=== PATIENT | female | born 1990 | race Caucasian/White ===

== ENCOUNTER 2016-04-16 12:40 | Emergency (ER) | payer OTHER ==
[~2016-04-16] VITALS: Ht 165.1 cm; Wt 56.6 kg
[~2016-04-16 12:40] MED LIST: CYCL10TA6 PO; DLN100 PO; GABA-113 PO; LACT10SO17 PO; LAMICTAL 250 MG PO; LAMO100T PO; METO25TA56 PO; PARO1TAB27 PO; PRLSR20 PO
[2016-04-16 12:50] VITALS: Ht 165.1 cm; Wt 56.6 kg
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
[2016-04-16] MEDS ORDERED: SODIUM CHLORIDE 0.9% 1000ML 1,000 ML IV STA (12:53)
[2016-04-16] MEDS ORDERED: ONDANSETRON INJ 2 MG/ML 2 ML VIAL IV STA (12:53)
[2016-04-16 12:59] VITALS: TEMP 37.1; O2SAT 98
[2016-04-16] MEDS ORDERED: LEVETIRACETAM IV 1,000 MG in DEXTROSE 5% 100ML 100 ML IV ONE (13:00)
--- NOTE | 2016-04-16 13:20 | DIAGNOSTIC IMAGING REPORT ---
CHEST ONE VIEW PORTABLE CLINICAL HISTORY: SEIZURE mental status change. COMPARISON STUDY: 06/16/2013 FINDINGS: The bones soft tissues and hemidiaphragms are normal. The cardiomediastinal silhouette is normal. The lungs are clear. The pulmonary vasculature is normal. Postoperative changes of the low cervical region. IMPRESSION: No acute process. Electronically signed by: Demario Valdivia M.D. 04/16/2016 1:19 PM
[2016-04-16] MEDS ORDERED: CHLO25CA9 PO (13:42)
[2016-04-16] MEDS ORDERED: MAGN400T6 PO (13:42)
[2016-04-16] MEDS ORDERED: DICY20TA10 PO (13:42)
[2016-04-16] MEDS ORDERED: PPTBS PO (13:42)
[2016-04-16] MEDS ORDERED: HYDR50CA2 PO (13:42)
[2016-04-16] MEDS ORDERED: THM100 PO (13:42)
[2016-04-16] MEDS ORDERED: LAMO150T32 PO (13:42)
[2016-04-16] MEDS ORDERED: ONDA4TAB46 PO (13:42)
[2016-04-16] MEDS ORDERED: FOLI1TAB7 PO (13:42)
[2016-04-16] MEDS ORDERED: MULT-506 PO (13:42)
[2016-04-16] MEDS ORDERED: ONDA4TAB46 IM (13:42)
--- NOTE | 2016-04-16 14:08 | DIAGNOSTIC IMAGING REPORT ---
CT OF THE HEAD WITHOUT CONTRAST CLINICAL HISTORY: Seizure. COMPARISON STUDY: Head CT June 14, 2013 and MRI of the brain August 03, 2014. CT DOSE: 638.56 mGycm TECHNIQUE: Helical axial images of the head were obtained without IV contrast. Automated exposure control was utilized for the study. FINDINGS: No acute intracranial hemorrhage, midline shift or mass effect is present. Brain volume is normal. Ventricular system is normal. The basilar cisterns are patent. There are no extra-axial collections. Guillermo-white differentiation is maintained. There are no findings to suggest acute dural sinus thrombosis or acute territorial infarct. There is no calvarial fracture. IMPRESSION: No acute intracranial findings. Electronically signed by: Suhas Hall M.D. 04/16/2016 2:07 PM 04/16/2016 2:04 PM
--- NOTE | 2016-04-16 14:15 | DIAGNOSTIC IMAGING REPORT ---
CERVICAL SPINE CT CT DOSE: 481.45 mGycm HISTORY: Trauma seizure TECHNIQUE: Multiaxial CT images of the cervical spine were performed and reformatted in the sagittal and coronal plane without the use of contrast. COMPARISON: None. FINDINGS: No fractures. No subluxation. Prevertebral soft tissues and the C1-C2 interval are intact. No pneumothorax. Findings consistent with an anterior as well as posterior fusion-type change from C6 through T2. Fusion appears solid. Hardware is intact. IMPRESSION: No fractures within the cervical spine. Electronically signed by: Demario Valdivia M.D. 04/16/2016 2:13 PM Dictated Date/Time: 04/16/2016 2:07 PM
[2016-04-16 15:12] LABS: BASO % 0.3 %; BASO ABS # 0.02 K/uL (0-0.2); COMPLETE YES; EOS % 0.1 %; HEMATOCRIT 37.7 % (37-47); IG% 0.1 %; LYMPH % 22.3 %; LYMPH ABS # 1.64 K/uL (1.2-3.4); MEAN CELL VOLUME 85.1 fL (80-100); MEAN CORPUSCULAR HEMOGLOBIN 29.8 pg (25-34); MEAN PLATELET VOLUME 10.2 fL (7.4-10.4); MONO % 5.9 %; NEUT % 71.3 %; PLATELET COUNT 298 K/uL (130-400); RED BLOOD COUNT 4.43 M/uL (4.2-5.4); WHITE BLOOD COUNT 7.35 K/uL (4.8-10.8)
[2016-04-16 15:26] LABS: INR 1.1 (0.9-1.1); PARTIAL THROMBOPLASTIN RATIO 1.1; PROTHROMBIN TIME (PATIENT) 11.5 SECONDS (9.0-12.0)
[2016-04-16] MEDS ORDERED: LEVE500T13 PO (15:26)
[2016-04-16 15:31] LABS: BUN/CREATININE RATIO 15.2 (10-20); CALCIUM 8.7 mg/dl (8.5-10.1); CREATININE 0.64 mg/dl (0.60-1.20); MAGNESIUM 2.1 mg/dl (1.8-2.4); POTASSIUM 3.6 mmol/L (3.5-5.1)
[2016-04-16 15:41] LABS: PHOSPHORUS 2.8 mg/dl (2.5-4.9); THYROID STIMULATING HORMONE 0.151 uIu/ml (0.300-4.500)
[2016-04-16 15:42] LABS: ACETAMINOPHEN < 2 ug/ml (10-30)
[2016-04-16 15:47] LABS: URINE APPEARANCE CLEAR (CLEAR); URINE BILIRUBIN NEG (NEG); URINE COLOR YELLOW; URINE EPITHELIAL CELL AUTO >30 /lpf (0-5); URINE NITRITE NEG (NEG); URINE PH 6.5 (4.5-7.5); URINE SPECIFIC GRAVITY 1.003 (1.000-1.030); UROBILINOGEN NEG (NEG)
[2016-04-16 15:52] LABS: PREG INTERNAL NEGATIVE QC NEG CLEAR BACKGROUND; PREG INTERNAL POSITIVE QC POS CONTROL LINE
[2016-04-16 15:53] LABS: MANUAL MICROSCOPIC REQUIRED? NO; REVIEW REQ? NO
[2016-04-16 16:16] LABS: BENZODIAZEPINE, URINE POS (NEG); COCAINE,URINE NEG (NEG); PHENCYCLIDINE, URINE NEG (NEG)
[2016-04-16 16:34] VITALS: BP 119/64; PULSE 105; O2SAT 97
[2016-04-21 17:14] LABS: COD UR NEGATIVE NG/ML (CUTOFF=50); HYDROCOD UR NEGATIVE NG/ML (CUTOFF=50); HYDROMOR UR 482 NG/ML (CUTOFF=50); HYDROXYETHYLFLURAZEPAM CONF NEGATIVE NG/ML (CUTOFF=50); HYDROXYMIDAZOLAM NEGATIVE NG/ML (CUTOFF=50); HYDROXYTRIAZOLAM CONF NEGATIVE NG/ML (CUTOFF=50); MORPHINE UR >20000 NG/ML (CUTOFF=50); NORHYDROCODONE CONF UR NEGATIVE NG/ML (CUTOFF=50); OXYMORPH UR NEGATIVE NG/ML (CUTOFF=50); TEMAZEPAM CONF NEGATIVE NG/ML (CUTOFF=50)
== END 2016-04-16 16:37 ==
LOC: EDBD 12:40 → C.EDA 12:44
DX: G40.909 Epilepsy, unspecified, not intractable, without status epilepticus (principal); F11.10 Opioid abuse, uncomplicated; F14.10 Cocaine abuse, uncomplicated; F19.10 Other psychoactive substance abuse, uncomplicated; F10.10 Alcohol abuse, uncomplicated; F17.200 Nicotine dependence, unspecified, uncomplicated

== ENCOUNTER 2016-04-18 05:20 | Inpatient (IN) | payer OTHER ==
[~2016-04-18] VITALS: Ht 167.6 cm; Wt 63.1 kg
[~2016-04-18 05:20] MED LIST changes: +CHLO25CA9 PO; -CYCL10TA6 PO; +DICY20TA10 PO; -DLN100 PO; +FOLI1TAB7 PO; -GABA-113 PO; +HYDR50CA2 PO; -LACT10SO17 PO; -LAMICTAL 250 MG PO; -LAMO100T PO; +LAMO150T32 PO; +LEVE500T13 PO; +MAGN400T6 PO; -METO25TA56 PO; +MULT-506 PO; +ONDA4TAB46 IM; +ONDA4TAB46 PO; -PARO1TAB27 PO; +PPTBS PO; -PRLSR20 PO; +THM100 PO
[2016-04-18] MEDS ORDERED: SODIUM CHLORIDE 0.9% 1000ML 1,000 ML IV STA (05:36)
[2016-04-18] MEDS ORDERED: LEVETIRACETAM IV 1,000 MG in DEXTROSE 5% 100ML 100 ML IV ONE (05:45)
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
[2016-04-18 06:22] LABS: BASO % 0.4 %; BASO ABS # 0.03 K/uL (0-0.2); COMPLETE YES; EOS % 0.1 %; HEMATOCRIT 37.6 % (37-47); IG% 0.2 %; LYMPH % 20.1 %; LYMPH ABS # 1.62 K/uL (1.2-3.4); MEAN CELL VOLUME 84.5 fL (80-100); MEAN CORPUSCULAR HEMOGLOBIN 29.7 pg (25-34); MEAN CORPUSCULAR HGB CONC 35.1 g/dl (32-36); MEAN PLATELET VOLUME 9.9 fL (7.4-10.4); MONO % 8.4 %; NEUT % 70.8 %; PLATELET COUNT 274 K/uL (130-400); RED BLOOD COUNT 4.45 M/uL (4.2-5.4); WHITE BLOOD COUNT 8.06 K/uL (4.8-10.8)
[2016-04-18] MEDS ORDERED: CHLO25CA10 PO ×2 (06:23→06:30)
[2016-04-18] MEDS ORDERED: HYDR50CA2 PO (06:32)
[2016-04-18 06:36] LABS: INR 1.1 (0.9-1.1); PARTIAL THROMBOPLASTIN RATIO 1.1; PROTHROMBIN TIME (PATIENT) 11.6 SECONDS (9.0-12.0)
[2016-04-18] MEDS ORDERED: LEVE500T13 PO (06:40)
[2016-04-18 06:44] LABS: BUN/CREATININE RATIO 11.2 (10-20); CALCIUM 9.1 mg/dl (8.5-10.1); CREATININE 0.75 mg/dl (0.60-1.20); POTASSIUM 3.5 mmol/L (3.5-5.1)
[2016-04-18 06:54] LABS: ALB/GLOB RATIO 1.1 (0.9-2); CKMB/CK RATIO 1.1 (0-3.0); THYROID STIMULATING HORMONE 0.379 uIu/ml (0.300-4.500)
[2016-04-18] MEDS ORDERED: MULTI-VITAMIN INFUSION INJ 10 ML, THIAMINE HCL INJ 100 MG, FoLIC ACID INJ 1 MG in SODIU... IV ONE (07:00)
--- NOTE | 2016-04-18 07:36 | DIAGNOSTIC IMAGING REPORT ---
CHEST ONE VIEW PORTABLE CLINICAL HISTORY: Seizure. COMPARISON STUDY: Chest radiograph April 16, 2016. FINDINGS: Postsurgical findings within the spine are noted. There is no pneumothorax or pleural effusion. No pneumothorax or pleural effusions present. Cardiac size is normal. No consolidation is identified. IMPRESSION: No acute cardiopulmonary findings. Electronically signed by: Suhas Hall M.D. 04/18/2016 7:35 AM Dictated Date/Time: 04/18/2016 7:28 AM
[2016-04-18 07:48] LABS: URINE APPEARANCE TURBID (CLEAR); URINE BILIRUBIN NEG (NEG); URINE COLOR YELLOW; URINE NITRITE NEG (NEG); URINE PH 7.5 (4.5-7.5); URINE SPECIFIC GRAVITY 1.016 (1.000-1.030); UROBILINOGEN NEG (NEG)
[2016-04-18 07:49] LABS: MANUAL MICROSCOPIC REQUIRED? NO
[2016-04-18 07:58] LABS: URINE EPITHELIAL CELL AUTO >30 /lpf (0-5)
[2016-04-18 08:00] LABS: REVIEW REQ? NO; ZZUR CULT IF INDIC CLEAN CATCH YES
[2016-04-18] MEDS ORDERED: MAGNESIUM HYDROXIDE SUSP 30 ML UDC PO PRN (08:15)
[2016-04-18] MEDS ORDERED: ALUMINUM/MAGNESIUM/SIMETH (MAALOX MAX) 30 ML UDC PO PRN (08:15)
[2016-04-18] MEDS ORDERED: POLYETHYLENE (MIRALAX) 17 GM PACK PO PRN (08:15)
[2016-04-18] MEDS ORDERED: ONDANSETRON INJ 2 MG/ML 2 ML VIAL IV PRN (08:15)
[2016-04-18 08:17] LABS: BENZODIAZEPINE, URINE POS (NEG); COCAINE,URINE NEG (NEG); PHENCYCLIDINE, URINE NEG (NEG)
[2016-04-18] MEDS ORDERED: BISMUTH SUBSALICYLATE LIQUID 236 ML PO PRN (08:30)
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
[2016-04-18] MEDS: MAGNESIUM OXIDE 400 MG TAB PO SCH (09:00)
[2016-04-18] MEDS ORDERED: LORAZEPAM 2 MG/ML 1 ML VIAL ONE ×2 (10:49→11:01)
[2016-04-18 12:41] VITALS: BP 103/54; PULSE 119; TEMP 36.6; O2SAT 99; Ht 167.6 cm; Wt 63.1 kg
[2016-04-18] MEDS: SODIUM CHLORIDE 0.9% 1000ML 1,000 ML IV SCH ×2 (13:00→23:06)
[2016-04-18] MEDS: DICYCLOMINE HCL 20 MG TAB PO SCH ×2 (13:50→20:49)
[2016-04-18] MEDS: hydrOXYzine HCL 25 MG TAB PO SCH ×2 (13:50→20:49)
[2016-04-18] MEDS: NICOTINE 14 MG/24 HR TDSY TD SCH (13:50)
[2016-04-18] MEDS: CHLORDIAZEPOXIDE 25 MG CAP PO SCH ×2 (13:50→20:48)
[2016-04-18 15:25] VITALS: BP 119/72; PULSE 98; TEMP 37; O2SAT 99
[2016-04-18] MEDS: LORAZEPAM 2 MG/ML 1 ML VIAL IV PRN (18:45)
[2016-04-18 18:50] VITALS: BP 150/70; PULSE 131; O2SAT 100
[2016-04-18] MEDS ORDERED: NURSING VERBAL MED ORDER ONE (19:00)
[2016-04-18] MEDS: LEVETIRACTAM 500 MG in DEXTROSE 5% 100ML IV SCH (19:32)
[2016-04-18 20:20] VITALS: O2SAT 100
[2016-04-18] MEDS ORDERED: LEVETIRACETAM 500 MG TAB PO SCH (21:00)
[2016-04-19] MEDS: LORAZEPAM 2 MG/ML 1 ML VIAL IV PRN ×2 (00:53→04:18)
[2016-04-19 01:42] VITALS: BP 112/69; PULSE 89; TEMP 36.7; O2SAT 97
[2016-04-19 04:00] VITALS: BP 118/72; PULSE 92; TEMP 36.6; O2SAT 97
[2016-04-19 07:06] LABS: BUN/CREATININE RATIO 9.2 (10-20); CALCIUM 8.8 mg/dl (8.5-10.1); CREATININE 0.66 mg/dl (0.60-1.20); POTASSIUM 3.4 mmol/L (3.5-5.1)
[2016-04-19] MEDS ORDERED: POTASSIUM CHLORIDE 10 MEQ TABCR PO STA (07:51)
[2016-04-19] MEDS: CHLORDIAZEPOXIDE 25 MG CAP PO SCH (07:53)
[2016-04-19] MEDS: LEVETIRACTAM 500 MG in DEXTROSE 5% 100ML IV SCH (07:53)
[2016-04-19] MEDS: DICYCLOMINE HCL 20 MG TAB PO SCH ×2 (07:54→13:50)
[2016-04-19] MEDS: hydrOXYzine HCL 25 MG TAB PO SCH (07:54)
[2016-04-19] MEDS: NICOTINE 14 MG/24 HR TDSY TD SCH (07:56)
[2016-04-19] MEDS: MAGNESIUM OXIDE 400 MG TAB PO SCH (07:56)
[2016-04-19] MEDS: SODIUM CHLORIDE 0.9% 1000ML 1,000 ML IV SCH (08:04)
[2016-04-19 08:18] VITALS: BP 117/76; PULSE 101; TEMP 36.6; O2SAT 98
[2016-04-19] MEDS ORDERED: THIAMINE HCL 100 MG TAB PO SCH (09:00)
[2016-04-19] MEDS ORDERED: MULTIVITAMIN TAB PO SCH (09:00)
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
[2016-04-19] MEDS ORDERED: VALPROATE SOD IV 1,000 MG in DEXTROSE 5% 50ML 50 ML IV ONE (11:15)
[2016-04-19 12:01] VITALS: BP 114/77; PULSE 85; TEMP 36.9; O2SAT 98
--- NOTE | 2016-04-19 12:45 | Discharge Instructions ---
Discharge Instructions Admission Reason for Admission: Seizure,Alcohol Withdrawal Discharge Discharge Diagnosis / Problem: Seizure disorder Discharge Goals Goal(s): Decrease discomfort, Improve function, Increase independence, Improve disease control, Learn about illness, Diagnostic testing Activity Recommendations Activity Limitations: resume your previous activity Shower/Bathe: no limitations . Instructions / Follow-Up Instructions / Follow-Up Patient to be discharged back to correctional facility No changes in medications made If worsening seizure activity, recommend [facility] for 24 hr EEG monitoring Recommend weaning of librium Please follow up with medical provider in correctional facility in 1 week Current Hospital Diet Patient's current hospital diet: Regular Diet Discharge Diet Recommended Diet: Regular Diet Pending Studies Studies pending at discharge: no Medical Emergencies . Who to Call and When: Medical Emergencies: If at any time you feel your situation is an emergency, please call 911 immediately. . Non-Emergent Contact Non-Emergency issues call your: Primary Care Provider Call Non-Emergent contact if: you have any medication questions (seizure activity) . . "Provider Documentation" section prepared by Fortino Riggs. VTE Core Measure Inpt VTE Proph given/why not?: Jasper Espinoza, SCD's
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
[2016-04-19 13:02] VITALS: BP 114/77; PULSE 85; TEMP 36.9; O2SAT 98
[2016-04-19] MEDS ORDERED: DIVALPROEX 500 MG EXTENDED RELEASE TAB PO SCH (21:00)
[2016-04-20] MEDS ORDERED: CHLO25CA10 PO (01:24)
[2016-04-21 17:20] LABS: COD UR NEGATIVE NG/ML (CUTOFF=50); HYDROCOD UR NEGATIVE NG/ML (CUTOFF=50); HYDROMOR UR 382 NG/ML (CUTOFF=50); HYDROXYETHYLFLURAZEPAM CONF NEGATIVE NG/ML (CUTOFF=50); HYDROXYMIDAZOLAM NEGATIVE NG/ML (CUTOFF=50); HYDROXYTRIAZOLAM CONF NEGATIVE NG/ML (CUTOFF=50); MORPHINE UR 9840 NG/ML (CUTOFF=50); NORHYDROCODONE CONF UR NEGATIVE NG/ML (CUTOFF=50); OXYMORPH UR NEGATIVE NG/ML (CUTOFF=50); TEMAZEPAM CONF NEGATIVE NG/ML (CUTOFF=50)
== END 2016-04-19 13:51 | disposition home or self-care (01) | DRG 101 ==
LOC: ENRESERVDT → ENRESERVTM → EDBD 05:20 → C.EDA 05:21 → C.2T 08:24
PROVIDERS: ADMIT Hospitalist; ATTEND Hospitalist
DX: G40.509 Epileptic seizures related to external causes, not intractable, without status epilepticus (principal); E72.20 Disorder of urea cycle metabolism, unspecified; F10.239 Alcohol dependence with withdrawal, unspecified; Z87.820 Personal history of traumatic brain injury; B19.20 Unspecified viral hepatitis C without hepatic coma; F11.10 Opioid abuse, uncomplicated; F17.210 Nicotine dependence, cigarettes, uncomplicated; F10.10 Alcohol abuse, uncomplicated; M54.2 Cervicalgia; F31.9 Bipolar disorder, unspecified

== ENCOUNTER 2016-04-20 00:53 | Emergency (ER) | payer OTHER ==
[~2016-04-20] VITALS: Ht 162.6 cm; Wt 65.8 kg
[~2016-04-20 00:53] MED LIST changes: +CHLO25CA10 PO; +CYCL10TA6 PO; +DLN100 PO; +GABA-113 PO; +LACT10SO17 PO; +LAMICTAL 250 MG PO; +LAMO100T PO; +METO25TA56 PO; +PARO1TAB27 PO; +PRLSR20 PO
[2016-04-20 00:56] VITALS: TEMP 36.5; Ht 162.6 cm; Wt 65.8 kg
[2016-04-20 01:02] VITALS: O2SAT 96
[2016-04-20] MEDS ORDERED: SODIUM CHLORIDE 0.9% 1000ML 1,000 ML IV STA (01:02)
[2016-04-20] MEDS ORDERED: CHLO25CA10 PO (01:24)
[2016-04-20] MEDS ORDERED: NICOTINE 14 MG/24 HR TDSY TD ONE (01:30)
[2016-04-20 01:33] LABS: BASO % 0.3 %; BASO ABS # 0.02 K/uL (0-0.2); COMPLETE YES; EOS % 0.8 %; HEMATOCRIT 37.4 % (37-47); IG% 0.1 %; LYMPH % 31.1 %; LYMPH ABS # 2.41 K/uL (1.2-3.4); MEAN CELL VOLUME 84.8 fL (80-100); MEAN CORPUSCULAR HEMOGLOBIN 29.3 pg (25-34); MEAN CORPUSCULAR HGB CONC 34.5 g/dl (32-36); MEAN PLATELET VOLUME 9.9 fL (7.4-10.4); MONO % 5.7 %; PLATELET COUNT 298 K/uL (130-400); RED BLOOD COUNT 4.41 M/uL (4.2-5.4); WHITE BLOOD COUNT 7.74 K/uL (4.8-10.8)
[2016-04-20 01:47] LABS: INR 1.1 (0.9-1.1); PARTIAL THROMBOPLASTIN RATIO 1.1; PROTHROMBIN TIME (PATIENT) 11.5 SECONDS (9.0-12.0)
[2016-04-20 01:51] LABS: ALT/SGPT 78 U/L (12-78); AST/SGOT 25 U/L (15-37); BLOOD UREA NITROGEN 6 mg/dl (7-18); BUN/CREATININE RATIO 8.2 (10-20); CALCIUM 9.1 mg/dl (8.5-10.1); CARBON DIOXIDE 25 mmol/L (21-32); CHLORIDE 108 mmol/L (98-107); CREATININE 0.72 mg/dl (0.60-1.20); GLUCOSE 87 mg/dl (70-99); MAGNESIUM 2.3 mg/dl (1.8-2.4); POTASSIUM 3.5 mmol/L (3.5-5.1); SODIUM 144 mmol/L (136-145)
[2016-04-20 01:54] LABS: ALB/GLOB RATIO 1.2 (0.9-2)
[2016-04-20 02:04] LABS: ALKALINE PHOSPHATASE 53 U/L (45-117); CKMB/CK RATIO 0.8 (0-3.0); THYROID STIMULATING HORMONE 0.972 uIu/ml (0.300-4.500)
--- NOTE | 2016-04-20 02:35 | EMERGENCY ROOM VISIT NOTE ---
History First contact with patient: 00:55 Chief Complaint: SEIZURE Stated Complaint: SEIZURES Nursing Triage Summary: Patient arrived to ED via ALS from [facility] for seizures. Report that patient had 1 seizure at 2100, another seizure at 2300, and then has had consecutive seizures since then. Patient reports that she was incontinent of urine since then. Patient is slow to respond at present time, but is alert and oriented x 4. Reports hx of seizures. 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 She reports that she last used heroin on 04/14. Track martinez noted on bilateral arms. History of Present Illness The patient is a 25 year old female who presents to the Emergency Department via EMS for evaluation of ongoing seizures. The patient has a history of seizure disorder. She is currently in the [facility] [place]. She was discharged from this facility yesterday after admission for breakthrough seizures and alcohol withdrawal. Patient has had occasional seizures throughout the day. This morning she developed consecutive seizures for approximately one hour. She had no seizures in route per EMS. There is been no postictal state upon arrival. She complains of a mild headache as well as neck pain. She rates her current discomfort as a 10/10. Patient denies any blurry vision, double vision, chest pain, abdominal pain. She did not bite her tongue. She does report urinating herself, however. She has been taking Keppra alone for her symptoms. Review of Systems A complete 10-point Review of Systems was discussed with the patient, with pertinent positives and negatives listed in the History of Present Illness. All remaining Review of Systems questions can be considered negative unless otherwise specified. Past Medical/Surgical History Medical Problems: (1) Herpes Simplex Nos (2) Strep Sore Throat (3) Tobacco Use Disorder (4) Tonsillectomy Family History COPD MOTHER, Cancer Kidney stones Sarcoidosis MOTHER, Social History Smoking Status: Current Every Day Smoker Alcohol Use: none Drug Use: cocaine, heroin, other Marital Status: single Housing Status: lives with family Occupation Status: unemployed Current/Historical Medications Scheduled Chlordiazepoxide (Librium), 25 MG PO DAILY Dicyclomine Hcl (Dicyclomine Hcl), 20 MG PO TID Folic Acid (Folvite), 1 MG PO DAILY Hydroxyzine Pamoate (Vistaril), 25 MG PO TID Lamotrigine (Lamictal), 250 MG PO BID Levetiracetam (Keppra), 500 MG PO BID Magnesium Oxide (Mag-Ox), 400 MG PO DAILY Multivitamin (Multivitamin), 1 TAB PO DAILY Thiamine HCl (Vitamin B-1), 100 MG PO DAILY Scheduled PRN Bismuth Subsalicylate (Pepto-Bismol Susp), 30 ML PO BID PRN for PRN Ondansetron Hcl (Zofran), 4 MG PO TID PRN for Nausea Ondansetron Hcl (Zofran), 4 MG IM TID PRN for PRN Allergies Coded Allergies: No Known Allergies (Unverified , 04/20/16) Physical Exam Vital Signs Date Time Temp Pulse Resp B/P Pulse Ox O2 Delivery O2 Flow Rate FiO2 04/20/16 02:45 87 18 105/69 95 04/20/16 01:02 101 04/20/16 01:02 96 Room Air 04/20/16 00:56 36.5 87 20 100/73 97 Room Air Pain Rating (0-10): 10 Physical Exam VITAL SIGNS - Vital signs and nursing notes were reviewed. GENERAL - 25-year-old female appearing her stated age who is in no acute distress. Communicates well with provider and answers questions appropriately. HEAD - Normocephalic, Atraumatic. No Sierra's Sign or Raccoon's Eyes. No depressed skull fractures palpable. EYES - PERRL with EOMI bilaterally. Sclera anicteric. Palpebral conjunctiva pink and moist with no injection noted. EARS - No deformities of external structures noted on gross examination bilaterally. No pain elicited with palpation of the tragus bilaterally. External auditory canals without discharge or otorrhea. Tympanic membranes pearly bright without retraction or bulging. NOSE - Midline and without cyanosis. No epistaxis or purulent drainage noted. Septum midline without deviation or septal hematoma noted. MOUTH/OROPHARYNX - Without perioral cyanosis. Buccal mucosa pink and moist and without leukoplakia. Tongue midline with equal elevation of palate bilaterally. No tonsillar hypertrophy, erythema, or exudates noted. NECK - Neck with FROM. Supple to palpation. Well-healed surgical incision site appreciated in the posterior portion of the neck. LUNGS - Chest wall symmetric without accessory muscle use, intercostals retractions, or central cyanosis. Normal vesicular breath sounds CTA B/L. No wheezes, rales, or rhonchi appreciated. CARDIAC - RRR with S1/S2. No murmur, rubs, or gallops appreciated. ABDOMEN - Abdominal contour flat and without pulsations or visible masses. BS normoactive all four quadrants. No tenderness, palpable masses, hepatosplenomegaly, or ascites noted. EXTREMITIES - No pretibial edema present. +3/5 radial and dorsalis pedis pulses palpated throughout. FROM with no tremors, fasciculations, or clonus noted on PROM throughout. +5/5 strength noted in UE/LE bilaterally. NEUROLOGIC - Cranial nerves II through XII grossly intact. Sensory intact to light touch throughout. Patellar reflexes +2/4. Patient able to perform rapid alternating movements appropriately. PSYCH - A&Ox3 and cooperates fully with examiner. Pt is very pleasant and interacts well with examiner. Medical Decision & Procedures ER Provider Diagnostic Interpretation: X-ray the chest was obtained and reviewed by myself. No acute cardiopulmonary processes appreciated per my interpretation. Unchanged from prior. Cervical hardware remains intact. Radiologist's impression unavailable at the time of dictation. Laboratory Results 04/20/16 01:22 Red Blood Count 4.41, Mean Corpuscular Volume 84.8, Mean Corpuscular Hemoglobin 29.3, Mean Corpuscular Hemoglobin Concent 34.5, Mean Platelet Volume 9.9, Neutrophils (%) (Auto) 62.0, Lymphocytes (%) (Auto) 31.1, Monocytes (%) (Auto) 5.7, Eosinophils (%) (Auto) 0.8, Basophils (%) (Auto) 0.3, Neutrophils # (Auto) 4.80, Lymphocytes # (Auto) 2.41, Monocytes # (Auto) 0.44, Eosinophils # (Auto) 0.06, Basophils # (Auto) 0.02 04/20/16 01:22 Test 04/20/16 01:22 White Blood Count 7.74 K/uL (4.8-10.8) Red Blood Count 4.41 M/uL (4.2-5.4) Hemoglobin 12.9 g/dL (12.0-16.0) Hematocrit 37.4 % (37-47) Mean Corpuscular Volume 84.8 fL (80-100) Mean Corpuscular Hemoglobin 29.3 pg (25-34) Mean Corpuscular Hemoglobin Concent 34.5 g/dl (32-36) Platelet Count 298 K/uL (130-400) Mean Platelet Volume 9.9 fL (7.4-10.4) Neutrophils (%) (Auto) 62.0 % Lymphocytes (%) (Auto) 31.1 % Monocytes (%) (Auto) 5.7 % Eosinophils (%) (Auto) 0.8 % Basophils (%) (Auto) 0.3 % Neutrophils # (Auto) 4.80 K/uL (1.4-6.5) Lymphocytes # (Auto) 2.41 K/uL (1.2-3.4) Monocytes # (Auto) 0.44 K/uL (0.11-0.59) Eosinophils # (Auto) 0.06 K/uL (0-0.5) Basophils # (Auto) 0.02 K/uL (0-0.2) RDW Standard Deviation 44.0 fL (36.4-46.3) RDW Coefficient of Variation 14.2 % (11.5-14.5) Immature Granulocyte % (Auto) 0.1 % Immature Granulocyte # (Auto) 0.01 K/uL (0.00-0.02) Prothrombin Time 11.5 SECONDS (9.0-12.0) Prothromb Time International Ratio 1.1 (0.9-1.1) Activated Partial Thromboplast Time 28.2 SECONDS (21.0-31.0) Partial Thromboplastin Ratio 1.1 Anion Gap 11.0 mmol/L (3-11) Est Creatinine Clear Calc Drug Dose 111.6 ml/min Estimated GFR () 134.9 Estimated GFR (Non- 116.4 BUN/Creatinine Ratio 8.2 (10-20) Calcium Level 9.1 mg/dl (8.5-10.1) Magnesium Level 2.3 mg/dl (1.8-2.4) Total Bilirubin 0.5 mg/dl (0.2-1) Aspartate Amino Transf (AST/SGOT) 25 U/L (15-37) Alanine Aminotransferase (ALT/SGPT) 78 U/L (12-78) Alkaline Phosphatase 53 U/L (45-117) Total Creatine Kinase 139 U/L (26-192) Creatine Kinase MB 1.1 ng/ml (0.5-3.6) Creatine Kinase MB Ratio 0.8 (0-3.0) Troponin I < 0.015 ng/ml (0-0.045) Total Protein 7.1 gm/dl (6.4-8.2) Albumin 3.9 gm/dl (3.4-5.0) Globulin 3.2 gm/dl (2.5-4.0) Albumin/Globulin Ratio 1.2 (0.9-2) Lipase 72 U/L (73-393) Thyroid Stimulating Hormone (TSH) 0.972 uIu/ml (0.300-4.500) Medications Administered Medications (Trade) Dose Ordered Sig/Alla Route Start Time Stop Time Status Last Admin Dose Admin Sodium Chloride (Nss 1000ml) 1,000 ml @ 999 mls/hr Q1H1M STAT IV 04/20/16 01:02 04/20/16 02:02 DC 04/20/16 01:25 999 MLS/HR Nicotine (Nicoderm Cq 14MG Patch) 1 patch NOW ONCE TD 04/20/16 01:30 04/20/16 01:31 DC 04/20/16 01:39 1 PATCH Procedure Patient was placed on the cardiac specialist and monitored throughout the entire extent of their stay. In addition, the patient's pulse oximetry was monitored throughout the entire stay. Any abnormalities or aberrancies were addressed appropriately. ECG Indication: other (seizure) Rate (beats per minute): 82 Rhythm: normal sinus Findings: no acute ischemic change, no ectopy Change: no significant change ED Course Patient was seen and evaluated by myself. Previous emergency department visit notes and hospitalizations were reviewed. Labs were drawn, saline lock in place. EKG and chest x-rays were obtained. Patient was hydrated with a 1000 mL normal saline bolus. She was provided a NicoDerm patch for comfort at her request. Chest x-ray and EKGs are unremarkable. Laboratory results demonstrate no acute leukocytosis, worrisome anemia, or bandemia. The patient has no significant electrolyte abnormalities. Cardiac enzymes are negative. Troponin is negative. Patient had no breakthrough seizures while in the emergency department. [facility] was [facility] in [facility] condition. Medical Decision Given the patient's presentation and stated complaints, I did elect to perform the above-mentioned workup. The patient presents today after having multiple seizures this morning. She presents alert and oriented. There is been no postictal state upon arrival. I am familiar with this patient from her previous visit approximately 3 days ago. Her exam is otherwise unremarkable. She has no focal neurological deficits. Despite having the amount of seizures that was reported, the patient has actually no postictal state at all which is somewhat surprising. I questioned the patient may be experiencing pseudoseizure like activity or attention seeking like activity as well. Upon arrival she did request a NicoDerm patch for comfort. I did provide this to her. Her evaluation is unremarkable today. I do not feel the patient needs any further medications at this point. She will continue her Keppra. She is on Librium for her withdrawal symptoms. She will continue his medication. She will [facility] to the [facility] where she can continue to be monitored closely. Patient discharged home in good condition. In the evaluation and treatment of this patient, the following differential diagnoses were considered: Pseudoseizures, attention seeking behavior, somatization, PE, tachyarrhythmia, Migraine Headache, Intracranial Hemorrhage, Subdural Hematoma, Subarachnoid Hemorrhage, Cerebral Aneurysm, Temporal/Giant Cell Arteritis, Tension Headache, Meningitis, Encephalitis, or Hydrocephalus. Impression Primary Impression: Seizure-like activity Departure Information Dispostion Home / Self-Care Condition GOOD Referrals [place] [facility] (PCP) Patient Instructions A Signature Page, My [facility] Additional Instructions Continue Keppra. Return for any changing or worsening symptoms.
[2016-04-20 02:45] VITALS: BP 105/69; PULSE 87; O2SAT 95
--- NOTE | 2016-04-20 06:50 | DIAGNOSTIC IMAGING REPORT ---
CHEST ONE VIEW PORTABLE CLINICAL HISTORY: seizure COMPARISON STUDY: 04/18/2016 FINDINGS: The cardiac and mediastinal contours are normal. There is no evidence of focal pulmonary consolidation. There is no evidence of failure. No pleural effusions are visualized.[ Postsurgical changes are present within the cervical spine IMPRESSION: No active disease in the chest. Electronically signed by: Zane Araujo M.D. 04/20/2016 6:48 AM Dictated Date/Time: 04/20/2016 6:48 AM
== END 2016-04-20 02:45 | disposition home or self-care (01) ==
LOC: EDBD 00:53 → C.EDB 00:54
DX: G40.909 Epilepsy, unspecified, not intractable, without status epilepticus (principal); F11.23 Opioid dependence with withdrawal; R51 Headache; M54.2 Cervicalgia; Z79.899 Other long term (current) drug therapy; F17.200 Nicotine dependence, unspecified, uncomplicated

== ENCOUNTER 2016-04-22 10:06 | Emergency (ER) | payer OTHER ==
[~2016-04-22 10:06] MED LIST changes: -CHLO25CA9 PO; -CYCL10TA6 PO; -DLN100 PO; -GABA-113 PO; -LACT10SO17 PO; -LAMICTAL 250 MG PO; -LAMO100T PO; -METO25TA56 PO; -PARO1TAB27 PO; -PRLSR20 PO
[2016-04-22 10:09] VITALS: TEMP 36.7; Ht 162.6 cm
[2016-04-22] MEDS ORDERED: LAMO25TA PO (10:34)
[2016-04-22] MEDS ORDERED: LAMO200T38 PO (10:34)
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
[2016-04-22 12:22] LABS: BASO % 0.3 %; BASO ABS # 0.02 K/uL (0-0.2); COMPLETE YES; EOS % 0.4 %; HEMATOCRIT 40.4 % (37-47); IG% 0.1 %; LYMPH % 25.8 %; LYMPH ABS # 1.91 K/uL (1.2-3.4); MEAN CORPUSCULAR HEMOGLOBIN 29.6 pg (25-34); MEAN CORPUSCULAR HGB CONC 34.4 g/dl (32-36); MEAN PLATELET VOLUME 10.1 fL (7.4-10.4); MONO % 6.3 %; NEUT % 67.1 %; PLATELET COUNT 377 K/uL (130-400); WHITE BLOOD COUNT 7.41 K/uL (4.8-10.8)
[2016-04-22 12:40] LABS: ALT/SGPT 67 U/L (12-78); BLOOD UREA NITROGEN 8 mg/dl (7-18); BUN/CREATININE RATIO 11.1 (10-20); CALCIUM 9.8 mg/dl (8.5-10.1); CARBON DIOXIDE 23 mmol/L (21-32); CHLORIDE 111 mmol/L (98-107); GLUCOSE 96 mg/dl (70-99); POTASSIUM 3.9 mmol/L (3.5-5.1); SODIUM 145 mmol/L (136-145)
[2016-04-22 12:43] LABS: ALB/GLOB RATIO 1.2 (0.9-2); ALKALINE PHOSPHATASE 55 U/L (45-117); AST/SGOT 28 U/L (15-37)
--- NOTE | 2016-04-22 14:50 | EEG Procedure Note ---
EEG Procedure Note Date of Service Apr 22, 2016. Start / End Times Start Time: 1:39 PM End Time: 2:00 PM Referring Physician Kin Bobo History This is a 25-year-old female who presents with recurrent seizure-like activity. EEG for further evaluation of possible seizure etiology. Home Medication List Scheduled Dicyclomine Hcl (Dicyclomine Hcl), 20 MG PO TID Folic Acid (Folvite), 1 MG PO DAILY Hydroxyzine Pamoate (Vistaril), 25 MG PO TID Lamotrigine (Lamictal), 200 MG PO BID Lamotrigine (Lamictal), 50 MG PO BID Levetiracetam (Keppra), 500 MG PO BID Magnesium Oxide (Mag-Ox), 400 MG PO DAILY Multivitamin (Multivitamin), 1 TAB PO DAILY Thiamine HCl (Vitamin B-1), 100 MG PO DAILY Scheduled PRN Bismuth Subsalicylate (Pepto-Bismol Susp), 30 ML PO BID PRN for PRN Description This is a 21 electrode EEG with a single channel dedicated to limited EKG. The electrodes were placed in accordance with the International 10-20 system. At the start of the recording the patient was in an awake state. Background was well organized and composed of symmetric mixed alpha and beta frequencies. There was a symmetric well-formed moderate amplitude 8-9 Hz posterior dominant rhythm that was reactive to eye opening and closure. Hyperventilation was not done. Intermittent photic stimulation at various frequencies produced no abnormalities. Drowsiness was indicated by loss of muscle artifact and slowing of the background rhythm. There was no sleep transients. Interpretation This is a normal awake and drowsy routine EEG. There was no electrographic seizures or epileptiform discharges. Clinical Correlation A normal EEG does not rule out epilepsy if there is a strong clinical suspicion.
[2016-04-22 15:06] VITALS: BP 109/65; PULSE 101; O2SAT 99
== END 2016-04-22 15:12 | disposition home or self-care (01) ==
LOC: EDBD 10:06 → C.EDC 10:07
DX: R20.0 Anesthesia of skin (principal); M62.81 Muscle weakness (generalized); Z87.820 Personal history of traumatic brain injury; Z79.899 Other long term (current) drug therapy; F17.210 Nicotine dependence, cigarettes, uncomplicated

== ENCOUNTER 2016-10-05 11:30 | Emergency (ER) | payer OTHER ==
[~2016-10-05] VITALS: Ht 152.4 cm; Wt 55.1 kg
[~2016-10-05 11:30] MED LIST changes: -CHLO25CA10 PO; -LAMO150T32 PO; +LAMO200T38 PO; +LAMO25TA PO; -ONDA4TAB46 IM; -ONDA4TAB46 PO
[2016-10-05 11:40] VITALS: TEMP 37.1; O2SAT 96; Ht 152.4 cm; Wt 55.1 kg
[2016-10-05] MEDS ORDERED: SERT50TA PO (13:19)
[2016-10-05 13:21] LABS: BASO % 0.2 %; BASO ABS # 0.02 K/uL (0-0.2); COMPLETE YES; EOS % 0.6 %; HEMATOCRIT 41.4 % (37-47); IG% 0.2 %; LYMPH ABS # 1.82 K/uL (1.2-3.4); MEAN CELL VOLUME 89.8 fL (80-100); MEAN CORPUSCULAR HEMOGLOBIN 31.7 pg (25-34); MEAN CORPUSCULAR HGB CONC 35.3 g/dl (32-36); MEAN PLATELET VOLUME 9.9 fL (7.4-10.4); MONO % 5.3 %; NEUT % 76.7 %; PLATELET COUNT 257 K/uL (130-400); RED BLOOD COUNT 4.61 M/uL (4.2-5.4); WHITE BLOOD COUNT 10.72 K/uL (4.8-10.8)
[2016-10-05 13:39] LABS: BUN/CREATININE RATIO 15.1 (10-20); CREATININE 0.63 mg/dl (0.60-1.20); POTASSIUM 4.1 mmol/L (3.5-5.1)
[2016-10-05 13:44] LABS: CALCIUM 9.4 mg/dl (8.5-10.1)
--- NOTE | 2016-10-05 14:21 | DIAGNOSTIC IMAGING REPORT ---
CT OF THE HEAD WITHOUT CONTRAST CLINICAL HISTORY: Head injury. Seizure. COMPARISON STUDY: Head CT April 16, 2016. CT DOSE: 537.48 mGy.cm TECHNIQUE: Helical axial images of the head were obtained without IV contrast. Automated exposure control was utilized for the study. FINDINGS: No acute intracranial hemorrhage, midline shift or mass effect is present. Ventricular system is normal. Basilar cisterns are patent. There are no extra-axial collections. Guillermo-white differentiation is maintained and there are no findings to suggest acute dural sinus thrombosis or acute territorial infarct. There is no calvarial fracture. IMPRESSION: No acute intracranial findings. Electronically signed by: Suhas Hall M.D. 10/05/2016 2:20 PM Dictated Date/Time: 10/05/2016 1:58 PM
[2016-10-05 14:54] VITALS: BP 124/66; PULSE 91; O2SAT 96
--- NOTE | 2016-10-05 18:21 | EMERGENCY ROOM VISIT NOTE ---
History Report prepared by Debbie: Abbie Acosta Under the Supervision of: Dr. Jimy Starr M.D. First contact with patient: 12:06 Chief Complaint: SEIZURE Stated Complaint: SEIZURE Nursing Triage Summary: Pt arrives to ER via ALS s/p seizure. Pt was at [facility] this AM and following hearing fell, hit head, and had an approx 10 sec period of "tensing up." Pt has hx of seizures, on Keppra. Pt was recently admitted at [facility] for similar problem. BS ASSISTANT MERCHANDISE MANAGER was 77. Upon arrival to ER pt is awake and oriented. History of Present Illness The patient is a 26 year old female who presents to the Emergency Room with complaints of an episode of seizure-like activity occurring ASSISTANT MERCHANDISE MANAGER. The patient is an inmate and had a hearing this morning. As she was leaving court with her probation officers she fell. There was a large wooden bench next to her and they think that she may have hit her head on the bench. They are unsure if the patient lost consciousness or not. They state that after she fell, she became very tense and diaphoretic for about 10 seconds. She was grunting and swearing. She was not shaking. The patient was able to answer questions immediately afterwards. The patient is currently complaining of a headache that is exacerbated by bright lights. She denies neck pain, chest pain, shortness of breath, melena, hematochezia, and urinary symptoms. She has normal menstrual periods and her LNMP was about 1 month ago. She denies chance of . The patient has a history of seizures. She has a neurologist in [place]. She saw her neurologist in August after a seizure and her medications were adjusted. She was taken off of her Lamictal. The patient is still taking Keppra. One of the probation officers at bedside is familiar with the patient and has witnessed her seizures in the past. She states that the episode today appeared to be like her previous seizures. Source of History: patient Onset: ASSISTANT MERCHANDISE MANAGER Position: other (global) Quality: other (seizure-like) Timing: other (episode) Modifying Factors (Relieving): other (time) Associated Symptoms: + LOC (possible), + headache, No chest pain, No SOB, No melena, No hematochezia, No urinary symptoms Review of Systems See HPI for pertinent positives & negatives. A total of 10 systems reviewed and were otherwise negative. Past Medical & Surgical Medical Problems: (1) Herpes Simplex Nos (2) Strep Sore Throat (3) Tobacco Use Disorder (4) Tonsillectomy Family History COPD MOTHER, Cancer Kidney stones Sarcoidosis MOTHER, Social History Smoking Status: Current Every Day Smoker Alcohol Use: none Drug Use: cocaine, heroin, other Marital Status: single Housing Status: lives with family Occupation Status: unemployed Current/Historical Medications Scheduled Levetiracetam (Keppra), 500 MG PO BID Magnesium Oxide (Mag-Ox), 400 MG PO DAILY Multivitamin (Multivitamin), 1 TAB PO DAILY Sertraline (Zoloft), 50 MG PO DAILY Thiamine HCl (Vitamin B-1), 100 MG PO DAILY Allergies Coded Allergies: No Known Allergies (Unverified , 10/05/16) Physical Exam Vital Signs Date Time Temp Pulse Resp B/P (MAP) Pulse Ox O2 Delivery O2 Flow Rate FiO2 10/05/16 14:54 91 18 124/66 96 10/05/16 13:56 85 16 114/68 97 Room Air 10/05/16 12:13 92 10/05/16 12:06 99 16 113/67 98 Room Air 10/05/16 11:40 37.1 98 14 111/97 96 Room Air 10/05/16 11:40 96 Room Air Physical Exam Constitutional: Vital signs reviewed. Head: No laceration or soft tissue swelling to the skull. Eyes: Pupils are equal round reactive to light. Conjunctiva are noninjected. ENT: Pharynx is clear without erythema or exudate. Mucous membranes are moist. Neck supple without meningeal signs. No midline tenderness to the cervical spine. Respiratory: Clear to auscultation bilaterally. Breath sounds are equal bilaterally. Cardiovascular: Regular rate and rhythm. No rubs or gallops. GI: Soft, nondistended and nontender. Bowel sounds are present. Musculoskeletal: No peripheral edema. No lower extremity tenderness. Integumentary: No cyanosis. Neurological: The patient is awake and alert. Cranial nerves II-XII are intact. Motor is 5 out of 5 all extremities. Sensation is intact to light touch all extremities. Normal speech. No pronator drift. Psychiatric: Normal affect. Medical Decision & Procedures ER Provider Diagnostic Interpretation: Radiology results as stated below per my review and the radiologist's interpretation: CT OF THE HEAD WITHOUT CONTRAST CLINICAL HISTORY: Head injury. Seizure. COMPARISON STUDY: Head CT April 16, 2016. CT DOSE: 537.48 mGy.cm TECHNIQUE: Helical axial images of the head were obtained without IV contrast. Automated exposure control was utilized for the study. FINDINGS: No acute intracranial hemorrhage, midline shift or mass effect is present. Ventricular system is normal. Basilar cisterns are patent. There are no extra-axial collections. Guillremo-white differentiation is maintained and there are no findings to suggest acute dural sinus thrombosis or acute territorial infarct. There is no calvarial fracture. IMPRESSION: No acute intracranial findings. Electronically signed by: Suhas Hall M.D. 10/05/2016 2:20 PM Dictated Date/Time: 10/05/2016 1:58 PM Laboratory Results 10/05/16 13:05 Red Blood Count 4.61, Mean Corpuscular Volume 89.8, Mean Corpuscular Hemoglobin 31.7, Mean Corpuscular Hemoglobin Concent 35.3, Mean Platelet Volume 9.9, Neutrophils (%) (Auto) 76.7, Lymphocytes (%) (Auto) 17.0, Monocytes (%) (Auto) 5.3, Eosinophils (%) (Auto) 0.6, Basophils (%) (Auto) 0.2, Neutrophils # (Auto) 8.23, Lymphocytes # (Auto) 1.82, Monocytes # (Auto) 0.57, Eosinophils # (Auto) 0.06, Basophils # (Auto) 0.02 10/05/16 13:05 Test 10/05/16 13:05 White Blood Count 10.72 K/uL (4.8-10.8) Red Blood Count 4.61 M/uL (4.2-5.4) Hemoglobin 14.6 g/dL (12.0-16.0) Hematocrit 41.4 % (37-47) Mean Corpuscular Volume 89.8 fL (80-100) Mean Corpuscular Hemoglobin 31.7 pg (25-34) Mean Corpuscular Hemoglobin Concent 35.3 g/dl (32-36) Platelet Count 257 K/uL (130-400) Mean Platelet Volume 9.9 fL (7.4-10.4) Neutrophils (%) (Auto) 76.7 % Lymphocytes (%) (Auto) 17.0 % Monocytes (%) (Auto) 5.3 % Eosinophils (%) (Auto) 0.6 % Basophils (%) (Auto) 0.2 % Neutrophils # (Auto) 8.23 K/uL (1.4-6.5) Lymphocytes # (Auto) 1.82 K/uL (1.2-3.4) Monocytes # (Auto) 0.57 K/uL (0.11-0.59) Eosinophils # (Auto) 0.06 K/uL (0-0.5) Basophils # (Auto) 0.02 K/uL (0-0.2) RDW Standard Deviation 50.7 fL (36.4-46.3) RDW Coefficient of Variation 15.2 % (11.5-14.5) Immature Granulocyte % (Auto) 0.2 % Immature Granulocyte # (Auto) 0.02 K/uL (0.00-0.02) Anion Gap 5.0 mmol/L (3-11) Est Creatinine Clear Calc Drug Dose 105.4 ml/min Estimated GFR () 143.5 Estimated GFR (Non- 123.8 BUN/Creatinine Ratio 15.1 (10-20) Calcium Level 9.4 mg/dl (8.5-10.1) Laboratory results as reviewed by me. ECG Indication: other Rate (beats per minute): 83 Rhythm: normal sinus Findings: no acute ischemic change, no ectopy ED Course 1206: The patient was evaluated in room C10. A complete history and physical exam was performed. 1432: I updated the patient on her results. 1438: I spoke with Dr. Obrien of neurology. We discussed the patient's results and treatment plan. He recommended keeping the patient on Keppra and having her follow-up with neurology. He did not think there was a need to add any other anti-seizure medications at this time. 1441: I reassessed the patient at this time. She is feeling better and resting comfortably. I discussed the results and treatment plan with the patient and her parole officers at the bedside. She has an MRI scheduled and the [facility] will arrange a follow-up appointment with neurology. I answered all pertaining questions that she had. She expressed understanding and verbalized agreement. The patient will be discharged back to [facility]. Medical Decision This is a 26-year-old female who presents with a head injury and fall. Differential diagnosis includes seizure, pseudoseizure, intracranial hemorrhage , skull fracture, metabolic derangement, syncope. I did perform a limited focused review of portions of the patient's old chart on the electronic medical record. The patient had an EEG in April which was normal. She was seen in April and evaluated by neuro, they felt that she may have pseudo seizures. The patient was admitted September 06 to [place]. She had an EEG which was negative on the . Neurology thought that she was "having convulsions rather than seizures" and she was placed on a benzo drip. They were unsure if she had seizure disorder vs alcohol withdrawal. She was discharged back to [facility] on the on Keppra. Medication Reconciliation: I attest that I have personally reviewed the patient' s current medication list. Blood Pressure Screening: Patient was found to have an elevated blood pressure and was referred to their primary doctor for recheck and further treatment. I did evaluate the patient as noted above. The patient is presenting today after falling at Court. Witnesses state that she fell and hit her head on a bench. She seemed to have lost consciousness for about 10 seconds but then was swearing and answering questions. Her body was tense but she was not shaky. She does have a history of seizure disorder and takes Keppra. She does complain of a headache. She is neurologically intact. IV access was established. The patient was placed on a continuous clinical research monitor. I did order and personally review the patient's 12-lead EKG as described above. I did order and review the patient's blood work as noted in the electronic medical record. I did order a CT of the head. I did review the images myself as well as the radiology report as described above. There is no evidence of vitreal hemorrhage. I did discuss the case with Dr. Ruiz of neurology. She recommended keeping the patient on Keppra and not adding any other antiepileptics. She will be discharged back to [facility] and follow up with neurology. She does have an appointment for an MRI of her brain. She was discharged back to [facility] and will follow up with the [facility] doctor. Consults Time Called: [phone] Consulting Physician: Dr. Obrien Returned Call: [phone] Obrien of neurology. We discussed the patient's results and treatment plan. He recommended keeping the patient on Keppra and having her follow-up with neurology. He did not think there was a need to add any other anti-seizure medications at this time. Impression Primary Impression: Breakthrough seizure Additional Impression: Head injury Scribe Attestation The scribe's documentation has been prepared under my direct and personally reviewed by me in its entirety. I confirm that the note above accurately reflects all work, treatment, procedures, and medical decision making performed by me. Departure Information Dispostion Home / Self-Care Referrals Josh Nogueira M.D. (PCP) Forms HOME CARE DOCUMENTATION FORM, IMPORTANT VISIT INFORMATION Patient Instructions ED Head Injury Closed, ED Seizure Recurrent, My [facility] Additional Instructions You have been examined and treated today on an emergency basis only. This is not a substitute for, or an effort to provide, complete comprehensive medical care. It is impossible to recognize and treat all injuries or illnesses in a single emergency department visit. It is therefore important that you follow up closely with the [facility] physician and neurology. Return for worsening symptoms or if you develop fever, vomiting, numbness or weakness on one side of your body , difficulties with your speech or walking, or any other concerning symptoms. Continue Keppra as prescribed. Problem Qualifiers Additional Impression: Head injury Encounter type: initial encounter Qualified Codes: S09.90XA - Unspecified injury of head, initial encounter
== END 2016-10-05 14:55 | disposition home or self-care (01) ==
LOC: EDBD 11:30 → C.EDC 11:32
DX: S09.90XA Unspecified injury of head, initial encounter (principal); R56.9 Unspecified convulsions; W19.XXXA Unspecified fall, initial encounter; W22.8XXA Striking against or struck by other objects, initial encounter; F17.200 Nicotine dependence, unspecified, uncomplicated; Z90.89 Acquired absence of other organs; Z82.5 Family history of asthma and other chronic lower respiratory diseases; Z84.1 Family history of disorders of kidney and ureter; Z83.2 Family history of diseases of the blood and blood-forming organs and certain disorders involving the immune mechanism; Z79.899 Other long term (current) drug therapy

== ENCOUNTER → 2016-10-14 | Outpatient (CLI) | payer OTHER ==
[~2016-10-14] MED LIST changes: -DICY20TA10 PO; -FOLI1TAB7 PO; +GADAVIST IV PRN; -HYDR50CA2 PO; -LAMO200T38 PO; -LAMO25TA PO; -PPTBS PO; +SERT50TA PO
--- NOTE | 2016-10-14 20:36 | DIAGNOSTIC IMAGING REPORT ---
MRI OF THE BRAIN WITHOUT AND WITH IV CONTRAST SEIZURE PROTOCOL CLINICAL HISTORY: Seizure disorder. COMPARISON STUDY: MRI of the brain August 03, [address] October 05, 2016. TECHNIQUE: Utilizing a 1.5 Jannet magnet and dedicated coil, multiplanar, multiecho imaging of the brain was performed pre and postcontrast administration. IV administration of 6 mL of Gadavist contrast was uneventful. Thin cut coronal T2 imaging was performed according to seizure protocol. FINDINGS: There are no areas of restricted diffusion. No acute intracranial hemorrhage, midline shift or mass effect is present. Brain volume is normal. Ventricular system is normal. Basilar cisterns are patent. There are no extra-axial collections. Flow-voids for the major intracranial vessels are present. A 1.4 cm T2 hyperintense nonenhancing abnormality within the right aspect of the nasopharynx may reflect a mucous retention cyst. This was present on prior exams. No new areas of signal abnormality are present. A 7 mm T2 hyperintense periventricular focus within the right parietal lobe is unchanged since prior exam of August 03, 2014. The appearance of the brain is unchanged since prior exam. There is no intracranial mass or pathologic enhancement. IMPRESSION: 1. No acute intracranial findings. 2. No change since MRI of August 03, 2014, as described above. 3. No intracranial masses or pathologic enhancement. Electronically signed by: Suhas Hall M.D. 10/14/2016 8:35 PM Dictated Date/Time: 10/14/2016 8:30 PM
== END | disposition home or self-care (01) ==
LOC: C.MRI 15:47
PROVIDERS: ATTEND Family Medicine
DX: G40.909 Epilepsy, unspecified, not intractable, without status epilepticus (principal)

== ENCOUNTER 2022-10-14 07:47 | Inpatient (IN) ==
[2022-10-14] MEDS ORDERED: LIDOCAINE 1% LOCAL 20 ML VIAL INFIL PRN (09:13)
[2022-10-14] MEDS ORDERED: OXYTOCIN 30 UNITS/500 ML BAG IV PRN ×3 (09:13→22:39)
[2022-10-14 10:14] LABS: Hematocrit (blood only) 38.2 % (37.0-47.0); Hemoglobin 13.8 g/dl (12.0-16.0); Mean Corpuscular Hemoglobin 31.9 pg (25.0-34.0); Mean Corpuscular Hgb Conc 36.1 g/dL (32.0-36.0); Mean Corpuscular Volume 88.4 fL (80.0-100.0); Mean Platelet Volume 12.5 fL (9.4-12.4); Platelet Count 193 K/uL (130-400); RDW Coefficient of Variation 13.3 % (11.5-14.5); RDW Standard Deviation 42.7 fL (36.4-46.3); Red Blood Count 4.32 M/uL (4.20-5.40); White Blood Count 10.98 K/ul (4.8-10.8)
[2022-10-14 10:27] LABS: Amphetamines+Metham, Urine Neg (Neg); Barbiturates, Urine Neg (Neg); Benzodiazepine, Urine Neg (Neg); Cocaine, Urine Neg (Neg); MDMA (Ecstacy), Urine Neg (Neg); Methadone, Urine Neg (Neg); Opiate, Urine Neg (Neg); Phencyclidine, Urine Neg (Neg)
[2022-10-14] MEDS ORDERED: miSOPROStoL 50 MCG TAB PO STA (11:06)
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
[2022-10-14] MEDS: buprenorphine HCL 8 MG SUBL SL SCH ×2 (13:43→20:53)
--- NOTE | 2022-10-14 17:01 | Labor Progress Brief Note ---
Date of Service October 14, 2022 Assessment & Plan Admission and Anticipated Discharge Date Admission Date: October 14, 2022 Physical Exam Genitourinary: OB Exam Abdomen: + estimated weight (7 lbs.) Manual OB Exam: + cervical dilation 3 cm, + cervical effacement 60%, + station -2 and + amniotic fluid clear OB Exam Monitor Tracing: + external FHT monitor used, + external uterine monitor used, + category I and + normal FHT variability AROM with Amni-hook clear fluid will start Oxytocin to augment ctx Results & Data Vital Signs (Past 12 Hours) Vital Signs Temp Pulse Resp BP 10/14/22 15:08 37.1 C 18 10/14/22 11:34 36.4 C L 20 10/14/22 15:08 75 114/65 10/14/22 11:34 73 120/64 10/14/22 08:02 36.6 C 79 18 116/76
[2022-10-14] MEDS: LACTATED RINGER'S 1,000 ML IV PRN ×2 (17:52→21:24)
[2022-10-14] MEDS ORDERED: BUPIVACAINE 0.25% PF 30 ML VIAL ONE (17:54)
[2022-10-14] MEDS ORDERED: SODIUM CHLORIDE 0.9% PF INJ 10 ML VIAL ONE (17:54)
[2022-10-14] MEDS ORDERED: LIDOCAINE 2%/EPINEPHRINE 1:200,000 20 ML PF ONE (17:54)
[2022-10-14] MEDS ORDERED: ePHEDrine sulfate 50 MG/ML AMP ONE (17:54)
[2022-10-14] MEDS ORDERED: fentaNYL citrate PF 100 MCG/2 ML VIAL ONE (17:54)
[2022-10-14] MEDS ORDERED: fentaNYL 2MCG/ML ROPIVACAINE 1.25MG/ML 100 ML BAG EPI ONE (17:55)
[2022-10-14] MEDS ORDERED: fentaNYL citrate PF 100 MCG/2 ML VIAL EPI STA (18:09)
[2022-10-14] MEDS ORDERED: ROPIVACAINE 0.5% PF 5 MG/ML 20 ML VIAL EPI PRN (18:09)
[2022-10-14] MEDS ORDERED: NALOXONE HCL 1 MG in SODIUM CHLORIDE 0.9% 1000ML 1,000 ML IV PRN (18:09)
[2022-10-14] MEDS ORDERED: NALOXONE HCL 0.4 MG/1 ML VIAL/CARP IV PRN (18:09)
[2022-10-14] MEDS ORDERED: NALBUPHINE HCL INJ 10 MG/ML AMP IV PRN (18:09)
[2022-10-14] MEDS ORDERED: SODIUM CHLORIDE 0.9% PF INJ 10 ML VIAL EPI PRN (18:09)
[2022-10-14] MEDS ORDERED: ePHEDrine sulfate 50 MG/ML AMP IV PRN (18:09)
[2022-10-14] MEDS ORDERED: fentaNYL 2MCG/ML ROPIVACAINE 1.25MG/ML 100 ML BAG EPI PRN (18:09)
[2022-10-14] MEDS ORDERED: LIDOCAINE 2% MPF LOCAL 5 ML VIAL EPI PRN (18:09)
[2022-10-14] MEDS ORDERED: diphenhydrAMINE 50 MG/ML VIAL IV PRN (18:09)
[2022-10-14] MEDS ORDERED: fentaNYL citrate PF 100 MCG/2 ML VIAL EPI PRN (18:09)
[2022-10-14] MEDS ORDERED: SODIUM CHLORIDE 0.9% PF INJ 10 ML VIAL EPI STA (18:09)
[2022-10-14] MEDS ORDERED: LIDOCAINE 2%/EPINEPHRINE 1:200,000 20 ML PF EPI STA (18:09)
[2022-10-14] MEDS ORDERED: BUPIVACAINE 0.25% PF 30 ML VIAL EPI STA (18:09)
[2022-10-14] MEDS ORDERED: BUPIVACAINE 0.25% PF 30 ML VIAL EPI PRN (18:09)
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
[2022-10-14] MEDS ORDERED: OXYTOCIN 10 UNITS/ML 10ML VIAL IM ONE (22:03)
--- NOTE | 2022-10-14 22:06 | Delivery Summary ---
Vaginal Delivery Summary Date of Service October 14, 2022 Vaginal Delivery Summary Delivery Note live female BRENT over intact perineum with delayed cord clamping and Apgars 8/9 weight pending. Cord blood obtained followed by spontaneous delivery of intact placenta. No tears. EBL 100 ml. Final sponge and instrument count are correct. Mom and baby stable.
--- NOTE | 2022-10-14 22:19 | Anesthesia Procedure Note ---
Date of Service October 14, 2022 Anesthesia Post Epidural Note Vital Signs Vital Signs: Temp Pulse Resp BP Pulse Ox 98.2 F 92 H 18 104/54 L 98 10/14/22 20:58 10/14/22 22:15 10/14/22 21:27 10/14/22 22:15 10/14/22 21:54 Notes Mental Status: alert / awake / arousable and participated in evaluation Nausea / Vomiting: adequately controlled Pain: adequately controlled Airway Patency, RR, SpO2: stable & adequate BP & HR: stable & adequate Hydration State: stable & adequate Neuraxial Anesthesia: was administered and sensory block is resolving Anesthetic Complications: no major complications apparent and Pt Satisfied with anesthetic care Epidural: Removed without complications and With tip intact
[2022-10-14] MEDS ORDERED: BENZOCAINE 20% AER SPR 82.5 GM CAN EXT PRN (22:39)
[2022-10-14] MEDS ORDERED: HYDROCORTISONE ACETATE 25 MG SUPP PR PRN (22:39)
[2022-10-14] MEDS ORDERED: ACETAMINOPHEN 325 MG TAB PO PRN (22:39)
[2022-10-14] MEDS ORDERED: bisacodyL 10 MG SUPP PR PRN (22:39)
[2022-10-14] MEDS ORDERED: DIPHTHERIA/TETANUS/PERTUSSIS Vaccine (Tdap, Age 7+yrs) 0.5mL SYR/VL IM ONE (22:39)
[2022-10-14] MEDS ORDERED: OXYTOCIN 10 UNITS/ML VIAL ONE (23:26)
[2022-10-15] MEDS: IBUPROFEN 600 MG TAB PO PRN ×3 (02:48→14:36)
[2022-10-15 06:14] LABS: Hematocrit (blood only) 32.5 % (37.0-47.0); Hemoglobin 11.7 g/dl (12.0-16.0); Mean Corpuscular Hemoglobin 31.9 pg (25.0-34.0); Mean Corpuscular Volume 88.6 fL (80.0-100.0); Mean Platelet Volume 12.6 fL (9.4-12.4); Platelet Count 167 K/uL (130-400); RDW Coefficient of Variation 13.1 % (11.5-14.5); RDW Standard Deviation 42.3 fL (36.4-46.3); Red Blood Count 3.67 M/uL (4.20-5.40); White Blood Count 10.79 K/ul (4.8-10.8)
[2022-10-15] MEDS ORDERED: DOCUSATE SODIUM 100 MG CAP PO SCH (08:00)
[2022-10-15] MEDS: buprenorphine HCL 8 MG SUBL SL SCH ×2 (08:56→14:33)
[2022-10-15] MEDS: PRENATAL VITAMIN 1 TAB PO SCH (08:56)
[2022-10-15] MEDS: FERROUS SULFATE 325 MG TAB PO SCH (08:56)
[2022-10-15] MEDS ORDERED: buprenorphine HCL 8 MG SUBL SL SCH (09:00)
--- NOTE | 2022-10-15 10:15 | Obstetrical Progress Note ---
Date of Service October 15, 2022 Subjective Ambulation: ambulating normally Voiding: no voiding problems Passing Gas:: Yes Diet Tolerance:: regular diet Lochia:: Small Feeding Type:: bottle feeding Current Pain Level(1-10): 0 doing well Physical Exam Constitutional WD/WN, vitals as above Gastrointestinal (Abdomen) Inspection/Auscultation: abdomen normal to inspection fundus firm. abdomen soft and non-tender Musculoskeletal Extremities: extremities normal to inspection Neurologic patellar DTR's 2+ bilat, sensation intact Psychiatric A+Ox3, euthymic affect Results & Data Vital Signs (Past 12 Hours) Vital Signs Temp Pulse Pulse Resp BP BP Pulse Ox 10/15/22 07:40 36.5 C 70 18 119/77 10/15/22 03:00 36.6 C 75 18 122/74 10/15/22 00:50 36.7 C 96 H 18 118/66 99 10/14/22 23:45 18 10/14/22 23:15 18 10/14/22 23:00 18 10/14/22 22:45 18 10/14/22 22:30 18 10/14/22 22:15 18 10/15/22 00:16 113 H 135/64 10/14/22 23:48 101 H 124/66 10/14/22 23:14 102 H 112/61 10/14/22 23:00 93 H 118/71 10/14/22 22:45 92 H 116/63 10/14/22 22:30 96 H 141/88 H 10/14/22 22:15 92 H 104/54 L O2 Del Method 10/15/22 07:40 Room Air 10/15/22 03:00 10/15/22 00:50 Room Air 10/14/22 23:45 10/14/22 23:15 10/14/22 23:00 10/14/22 22:45 10/14/22 22:30 10/14/22 22:15 10/15/22 00:16 10/14/22 23:48 10/14/22 23:14 10/14/22 23:00 10/14/22 22:45 10/14/22 22:30 10/14/22 22:15 Laboratory Results 10/14/22 10/14/22 10/14/22 09:30 09:30 09:40 WBC 10.98 H RBC 4.32 Hgb 13.8 Hct 38.2 MCV 88.4 MCH 31.9 MCHC 36.1 H RDW Std Deviation 42.7 RDW Coeff of Sangita 13.3 Plt Count 193 MPV 12.5 H Urine Opiates Screen Neg Ur Methadone, Qual Neg Urine Barbiturates Neg Ur Phencyclidine (PCP) Neg U Amphetamin/Meth Scrn Neg MDMA (Ecstasy) Screen Neg U Benzodiazepines Scrn Neg Ur Cocaine Metabolite Neg U Marijuana (THC) Screen Neg SARS-CoV-2, RNA, NAAT NEGATIVE 10/15/22 05:51 WBC 10.79 RBC 3.67 L Hgb 11.7 L Hct 32.5 L MCV 88.6 MCH 31.9 MCHC 36.0 RDW Std Deviation 42.3 RDW Coeff of Sangita 13.1 Plt Count 167 MPV 12.6 H Urine Opiates Screen Ur Methadone, Qual Urine Barbiturates Ur Phencyclidine (PCP) U Amphetamin/Meth Scrn MDMA (Ecstasy) Screen U Benzodiazepines Scrn Ur Cocaine Metabolite U Marijuana (THC) Screen SARS-CoV-2, RNA, NAAT
[2022-10-15] MEDS ORDERED: bisacodyL 5 MG TABEC PO SCH (20:00)
[2022-10-16 06:52] LABS: Hematocrit (blood only) 34.5 % (37.0-47.0); Hemoglobin 12.4 g/dl (12.0-16.0)
[2022-10-16] MEDS: IBUPROFEN 600 MG TAB PO PRN (08:15)
[2022-10-16] MEDS: buprenorphine HCL 8 MG SUBL SL SCH (08:16)
[2022-10-16] MEDS: FERROUS SULFATE 325 MG TAB PO SCH (08:16)
[2022-10-16] MEDS: PRENATAL VITAMIN 1 TAB PO SCH (08:16)
--- NOTE | 2022-10-16 08:29 | Obstetrical Progress Note ---
Date of Service October 16, 2022 Assessment & Plan (1) Normal course: D/c home today with instructions f/u in clinic Subjective Ambulation: ambulating normally Voiding: no voiding problems Passing Gas:: Yes Diet Tolerance:: regular diet Lochia:: Small Doing well, wants to be d/c today Baby staying for 5 days due to Moms subutex use Physical Exam Constitutional WD/WN, vitals as above Respiratory normal respiratory effort, lungs clear to auscultation Cardiovascular RRR, no murmur, no edema Gastrointestinal (Abdomen) normal bowel sounds, soft, nontender, no hepatosplenomegaly fundus below U Results & Data Vital Signs (Past 12 Hours) Vital Signs Temp Pulse Resp BP Pulse Ox O2 Del Method 10/16/22 04:15 36.4 C L 73 16 126/84 97 Room Air Laboratory Results Laboratory Results WBC 10.79 K/ul (4.8-10.8) 10/15/22 05:51 RBC 3.67 M/uL (4.20-5.40) L 10/15/22 05:51 Hgb 12.4 g/dl (12.0-16.0) 10/16/22 06:26 Hct 34.5 % (37.0-47.0) L 10/16/22 06:26 MCV 88.6 fL (80.0-100.0) 10/15/22 05:51 MCH 31.9 pg (25.0-34.0) 10/15/22 05:51 MCHC 36.0 g/dL (32.0-36.0) 10/15/22 05:51 RDW Std Deviation 42.3 fL (36.4-46.3) 10/15/22 05:51 RDW Coeff of Sangita 13.1 % (11.5-14.5) 10/15/22 05:51 Plt Count 167 K/uL (130-400) 10/15/22 05:51 MPV 12.6 fL (9.4-12.4) H 10/15/22 05:51 Urine Opiates Screen Neg (Neg) 10/14/22 09:30 Ur Methadone, Qual Neg (Neg) 10/14/22 09:30 Urine Barbiturates Neg (Neg) 10/14/22 09:30 Ur Phencyclidine (PCP) Neg (Neg) 10/14/22 09:30 U Amphetamin/Meth Scrn Neg (Neg) 10/14/22 09:30 MDMA (Ecstasy) Screen Neg (Neg) 10/14/22 09:30 U Benzodiazepines Scrn Neg (Neg) 10/14/22 09:30 Ur Cocaine Metabolite Neg (Neg) 10/14/22 09:30 U Marijuana (THC) Screen Neg (Neg) 10/14/22 09:30 SARS-CoV-2, RNA, NAAT NEGATIVE (NEGATIVE) 10/14/22 09:30
== END 2022-10-16 09:30 | disposition home or self-care (01) | DRG 806 ==
LOC: 4S1 07:47 → 4E2 10-15 00:41